=== PATIENT | female | born 1950 | race American Indian/Alaskan Native ===

== ENCOUNTER 2017-07-09 12:49 | Emergency (ER) | payer MEDICARE ==
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
--- NOTE | 2017-07-09 14:12 | RAD ---
HISTORY: clearance COMPARISON: No prior. FINDINGS: LUNGS: No active pulmonary disease. PLEURA: No significant pleural effusion identified, no pneumothorax apparent. CARDIOVASCULAR: Normal. OSSEOUS STRUCTURES: No significant abnormalities. VISUALIZED UPPER ABDOMEN: Normal. OTHER FINDINGS: None. IMPRESSION: No active disease.
[2017-07-09 14:32] LABS: URINE BACTERIA RARE (<OCC); URINE BILIRUBIN NEGATIVE (NEGATIVE); URINE BLOOD SMALL (NEGATIVE); URINE COLOR YELLOW (YELLOW); URINE GLUCOSE (UA) NEG (Normal); URINE KETONE NEGATIVE (NEGATIVE); URINE PROTEIN NEGATIVE (NEGATIVE); URINE UROBILINOGEN 0.2-1.0 mg/dL (0.2-1.0)
[2017-07-09 14:37] LABS: BASO % 0.5 % (0.0-2.0); EOS # 0.1 K/uL (0.0-0.7); HEMATOCRIT 40.3 % (34.0-47.0); LYMPH # 1.6 K/uL (1.0-4.3); LYMPH % 27.7 % (20.0-40.0); MEAN CELL VOLUME 93.8 fl (81.0-99.0); MEAN CORPUSCULAR HEMOGLOBIN 32.2 pg (27.0-31.0); MEAN CORPUSCULAR HGB CONC 34.3 g/dL (33.0-37.0); MEAN PLATELET VOLUME 9.1 fl (7.2-11.7); MONO # 0.7 K/uL (0.0-0.8); MONO % 11.9 % (0.0-10.0); NEUT # 3.2 K/uL (1.8-7.0); NEUT % 57.9 % (50.0-75.0); NRBC % 0.1 % (0.0-0.0); RED CELL DISTRIBUTION WIDTH 14.4 % (11.5-14.5); WHITE BLOOD COUNT 5.6 K/uL (4.8-10.8)
[2017-07-09 14:53] LABS: RBC URINE 7 /hpf (0-3); URINE LEUKOCYTE ESTERASE SMALL Leu/uL (Negative); WBC URINE 9 /hpf (0-5)
[2017-07-09 14:55] LABS: ALB/GLOB RATIO 1.3 (1.0-2.1); ALCOHOL SERUM < 10 mg/dl (0-10); ALKALINE PHOSPHATASE 101 U/L (38-126); ALT/SGPT 37 U/L (9-52); AST/SGOT 37 U/L (14-36); BILIRUBIN,TOTAL 0.5 mg/dl (0.2-1.3); BLOOD UREA NITROGEN 15 mg/dl (7-17); CALCIUM 9.1 mg/dL (8.4-10.2); CARBON DIOXIDE 26 mmol/L (22-30); CHLORIDE 105 mmol/L (98-107); GFR AFRICAN-AMERICAN > 60; GLUCOSE,RANDOM 101 mg/dL (65-105); POTASSIUM 4.4 MMOL/L (3.6-5.0); SODIUM 144 mmol/l (132-148); TOTAL PROTEIN 8.9 G/DL (6.3-8.2)
--- NOTE | 2017-07-10 02:20 | ED PDOC ---
- Laboratory Results Result Diagrams: 07/09/17 14:25 07/09/17 14:25 - ECG O2 Sat by Pulse Oximetry: 99 (RA) - Progress ED Course And Treament: Case endorsed to auto service writer from [facility]LIN pending available [facility] bed for transfer 0:00 Patient sleeping; no distress 1:30 Patient sleeping; no distress 3:00 Patient sleeping; no distress 4:30 Patient sleeping; no distress 6:00 Patient sleeping; no distress Disposition - Clinical Impression Clinical Impression: Paranoid schizophrenia - POA Present On Arrival: None - Disposition Disposition: Transfer of Care Disposition Time: 06:00 Condition: STABLE Forms: [facility] (Mauritanian) Patient Signed Over To: Dominick Arango Handoff Comments: pending available bed at [facility]
[2017-07-10 04:22] VITALS: RESP 16
[2017-07-10 05:57] VITALS: O2SAT 99
--- NOTE | 2017-07-10 06:14 | ED PDOC ---
- Laboratory Results Result Diagrams: 07/09/17 14:25 07/09/17 14:25 - ECG O2 Sat by Pulse Oximetry: 99 (RA) Pulse Ox Interpretation: Normal Medical Decision Making Medical Decision Making: Time: 6:00 --Patient transferred to in by Kacy Kelly PA-C pending bed availability at [facility] Time: 7:00 --Patient signed out by me to Dr. Neida MD pending bed availability at [facility]. Scribe Attestation: Documented by Christian Hercules, acting as a scribe for Dominick Arango MD Provider Scribe Attestation: All medical record entries made by the Scribe were at my direction and personally dictated by me. I have reviewed the chart and agree that the record accurately reflects my personal performance of the history, physical exam, medical decision making, and the department course for this patient. I have also personally directed, reviewed, and agree with the discharge instructions and disposition. Disposition - Clinical Impression Clinical Impression: Paranoid schizophrenia - POA Present On Arrival: None - Disposition Disposition: Transfer of Care Disposition Time: 07:00 Condition: STABLE Forms: [facility] (Khmer) Patient Signed Over To: Saravanan Carrasquillo Handoff Comments: pending bed availability at [facility]
--- NOTE | 2017-07-10 07:18 | ED PDOC ---
- Laboratory Results Result Diagrams: 07/09/17 14:25 07/09/17 14:25 - ECG O2 Sat by Pulse Oximetry: 99 (RA) - Progress ED Course And Treament: 1326: Stable. Pt. to be transferred to [facility]. Medical Decision Making Medical Decision Making: Time: 07:00 Patient is signed out to me by Dr. Dominick Arango, pending bed availability at [facility]. Scribe Attestation: Documented by Nisha Marie, acting as a scribe for Saravanan Carrasquillo MD Provider Scribe Attestation: All medical record entries made by the Scribe were at my direction and personally dictated by me. I have reviewed the chart and agree that the record accurately reflects my personal performance of the history, physical exam, medical decision making, and the department course for this patient. I have also personally directed, reviewed, and agree with the discharge instructions and disposition. Disposition - Clinical Impression Clinical Impression: Paranoid schizophrenia - POA Present On Arrival: None - Disposition Disposition: Other Institution Disposition Time: 13:27 Condition: STABLE
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
[2017-07-10 10:37] VITALS: BP 118/63; PULSE 75; TEMP 97.9
--- NOTE | 2017-07-11 17:50 | CARD ---
APPROVED REPORT EKG Measurement Heart [id number] <Conclusion> Normal sinus rhythm Minimal voltage criteria for LVH, may be normal variant T wave abnormality, consider inferolateral ischemia Abnormal ECG
== END 2017-07-10 14:00 | disposition short-term general hospital (02) ==
LOC: H.ER 12:49
DX: F20.0 Paranoid schizophrenia (principal); F23 Brief psychotic disorder; H40.9 Unspecified glaucoma; I10 Essential (primary) hypertension